=== PATIENT | male | born 1995 | race Caucasian/White ===

== ENCOUNTER 2024-04-08 14:05 | Outpatient (OUT) | payer OTHER, SELFPAY ==
--- NOTE | 2024-04-08 | XR_ITS ---
The [address] [address] Patient Name: MICHAEL BHAGAT MRN: [id number] date: 1995 Sex: M Assigned Patient Location: Current Patient Location: Accession/Order Number: [id number] Exam Date: 04/08/2024 14:15 Report Date: 04/09/2024 06:48 At the request of: TEQUILA SEARS Procedure: XR foot SONY min 3V EXAMINATION: XR foot SONY min 3V HISTORY: BILATERAL FOOT PAIN COMPARISON: No relevant comparison available. FINDINGS: RIGHT FINDINGS: BONES: No significant arthropathy or acute abnormality. SOFT TISSUES: No visible soft tissue swelling. OTHER: Negative. LEFT FINDINGS: BONES: No significant arthropathy or acute abnormality. SOFT TISSUES: No visible soft tissue swelling. OTHER: Negative. XR/XR foot SONY min 3V IMPRESSION: RIGHT CONCLUSION: No acute bone abnormality, evidence of osteomyelitis, or significant degenerative joint disease. LEFT CONCLUSION: No acute bone abnormality, evidence of ostial myelitis, or significant degenerative joint disease. Electronically authenticated by: NAINA MORILLO Date: 04/09/2024 06:48
== END 2024-04-08 14:06 | disposition home or self-care (01) ==
LOC: EC 14:05
PROVIDERS: Visit Provider Physician Assistant
DX: M79.672 Pain in left foot (principal); M79.671 Pain in right foot
CPT/HCPCS: 73630

== ENCOUNTER 2025-01-20 14:44 | Outpatient (OUT) | payer OTHER, MEDICARE, SELFPAY ==
--- OUTSIDE RECORDS SUMMARY | 2025-01-20 14:48 | XMS_ITS | Clinical Summary ---
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 Name Role Phone Jason Browning MD Primary Care Provider [phone] Allergies No known active allergies Medications MedicationSigDispense QuantityRefillsLast FilledStart DateEnd DateStatus LORazepam (Ativan) 0.5 MG tablet Indications:AnxietyTake 1 tablet (0.5 mg) by mouth 3 (three) times a day as needed for anxiety 60 tablet 4Active diphenoxylate-atropine (Lomotil) 2.5-0.025 MG tablet Indications:Diarrhea, unspecified typeTake 1 tablet by mouth 4 (four) times a day as needed for diarrhea 30 tablet 4Active omeprazole (PriLOSEC) [address] capsule Indications:Gastroesophageal reflux disease without esophagitisTake 1 capsule by mouth once daily 30 capsule 5Active ARIPiprazole (Abilify) 20 MG tablet Indications:Autistic disorder (HCC)Take 1 tablet by mouth once daily 30 tablet 5Active nystatin (Mycostatin) 780172 UNIT/GM powder Indications:Yane infection of flexural skinAPPLY POWDER TOPICALLY TO THE AFFECTED AREA TWICE DAILY 60 g 5Active divalproex (Depakote) 250 MG EC tablet Indications:Seizure disorder (HCC)Take 1 tablet by mouth twice daily 60 tablet 505Active cloNIDine (Catapres) 0.1 MG tablet Indications:Seizure disorder (HCC)TAKE 1 TABLET BY MOUTH AT BEDTIME 30 tablet 505Active FLUoxetine (PROzac) 20 MG capsule Indications:Developmental delay, severeTake 1 capsule by mouth once daily 30 capsule 5Active traZODone (Desyrel) 100 MG tablet Indications:Persistent disorder of initiating or maintaining sleepTAKE 1 TABLET BY MOUTH AT BEDTIME 30 tablet 505Active LORazepam (Ativan) 0.5 MG tablet Indications:Autistic disorder (HCC)TAKE 1/2 (ONE-HALF) TABLET BY MOUTH AT NOON BEFORE MEAL(S) 30 tablet 5Active LORazepam (Ativan) 0.5 MG tablet Indications:AnxietyTAKE 1 TABLET BY MOUTH THREE TIMES DAILY NEEDED FOR ANXIETY FOR UP TO 20 DAYS 60 tablet 5Active Active Problems ProblemNoted DateDiagnosed DateNeed for assistance with personal care07/08/2024 Encounter for long-term current use of ndlmcdomxb84/25/2024Lipid screening 07/10/2023Seizure jjqkdqre17/25/2024 Assessment & Plan (07/08/2024 9:44 AM EDT): No recent seizure activity and continue medication. Follow up with neurology as scheduled. Assessment & Plan (01/08/2024 9:38 AM EDT): No recent seizure activity and continue medication. Follow up with neurology as scheduled. Assessment & Plan (07/10/2023 11:21 AM EDT): No recent seizure activity and continue medication. Follow up with neurology as scheduled. Gait wxiuthfcexr43/29/2023astroesophageal reflux nrgurof3906/12/2022[employer] shunt 06/12/2022evelopmental delay, vljtwr1006/12/2022Hydrocephalus, congenital 02/10/2022 Assessment & Plan (07/10/2023 11:21 AM EDT): No recent seizures and monitor. Cerebral palsy04/08/2017 Assessment & Plan (07/08/2024 9:44 AM EDT): No behavior problems and continue medication. Use ativan PRN Assessment & Plan (01/08/2024 9:38 AM EDT): No behavior problems and continue medication. Use ativan PRN Assessment & Plan (07/10/2023 11:20 AM EDT): No behavior problems and continue medication. Use ativan PRN Autistic /23/2018 Assessment & Plan (07/08/2024 9:44 AM EDT): No behavior problems and continue medication. Use ativan PRN. Assessment & Plan (01/08/2024 9:38 AM EDT): No behavior problems and continue medication. Use ativan PRN. Assessment & Plan (07/10/2023 11:20 AM EDT): No behavior problems and continue medication. Use ativan PRN. Resolved Problems ProblemNoted DateDiagnosed DateResolved DateAcute allergic conjunctivitis of right eye Assessment & Plan (07/10/2023 11:20 AM EDT): Recent allergies and start OTC drops. Yane infection of flexural skin Assessment & Plan (04/14/2023 10:16 AM EST): Yane infection flexural skin mainly in inguinoscrotal region likely because of wearing diapers. Discussed different ways to limit skin moisture and keeping the skin dry. Will call in nystatin powder to help with skin moisture and skin rash. Encounters DateTypeDepartmentCare JyloGzggqarbgft98/25/2025Refill [facility] [address] [place] [id number] Jason Browning MD Vxflmla5011/02/2024Refill [facility] [address] [place] [address] Jason Browning MD 10/28/2024Refill [facility] [address] [place] [address] Jason Browning MD Seizure disorder (HCC); Developmental delay, severe; Persistent disorder of initiating or maintaining sleep; Autistic disorder (HCC)10/23/2024[facility] [address] [place] [address] Jason Browning MD Yane infection of flexural skin10/22/2024[facility] [address] [facility] [place] [phone] Jason Browning MD Gastroesophageal reflux disease without esophagitis; Autistic disorder (HCC)from Last 3 Months Immunizations ImmunizationAdministration DatesNext DueDTaP, Gvtzogkiaao27/26/2000,09/05/1995, 1994,1994,1994Hep A, Adult05/02/2015Hep A, ped/adol, 2 dose 06/26/2011Hep B, Adolescent or Meiusdjcb88/11/1995,1994,1994HiB, /21/1996,1994,1994,1994Influenza, injectable, quadrivalent, preservative free03/23/2022Influenza, recombinant, quadrivalent, injectable, preservative free01/22/2020MMR08/10/1999,05/27/1995Meningococcal ACWY, zppydayhhui68/25/2008Meningococcal IIQ6D4606/26/2011,06/09/2007Moderna SARS-CoV-2 Lbibawhflvh00/26/2021,05/11/2020,1Polio, Unspecified 09/05/1995,1994,1994,04/22/19941435QTCG-USH-0 (COVID-19) vaccine, mRNA, spike protein, LNP, bivalent, PF03/23/2022Td (adult), mohandrhmra25/25/2008Tdap 06/09/20073563Owjruoroe62/11/2012,03/31/1995 Family History Medical HistoryRelationNameCommentsNo Known ProblemsFatherHypertensionMother RelationNameStatusCommentsFatherMother Social History Tobacco UseTypesPacks/DayYears UsedDateSmoking Tobacco: NeverSmokeless Tobacco: Never Tobacco Cessation:Counseling Given: No Alcohol UseStandard Drinks/WeekCommentsNever0 (1 standard drink = 0.6 oz pure alcohol)B1300 Health LiteracyAnswerDate RecordedHow often do you need to have someone help you when you read instructions, pamphlets, or other written material from your doctor or pharmacy?Vhegtz0007/06/2024Humiliation, Afraid, Rape, and Kick questionnaireAnswerDate RecordedWithin the last year, have you been afraid of your partner or ex-partner?No07/06/2024Within the last year, have you been humiliated or emotionally abused in other ways by your partner or ex-partner?No07/06/2024Within the last year, have you been kicked, hit, slapped, or otherwise physically hurt by your partner or ex-partner?No07/06/2024Within the last year, have you been raped or forced to have any kind of sexual activity by your partner or ex-partner?No07/06/2024Social Connection and Isolation Panel AnswerDate RecordedIn a typical week, how many times do you talk on the phone with family, friends, or neighbors?Once a week07/06/2024How often do you get together with friends or relatives?More than three times a week07/06/2024How often do you attend holiness or judaism services?More than 4 times per year 07/06/2024Do you belong to any clubs or organizations such as holiness groups, unions, fraternal or athletic groups, or school groups?Yes07/06/2024How often do you attend meetings of the clubs or organizations you belong to?More than 4 times per year07/06/2024re you , , , , never , or living with a partner?Never waxbcyf5107/06/2024UDIT-CAnswerDate RecordedQ1: How often do you have a drink containing alcohol?Never07/06/2024Q2: How many drinks containing alcohol do you have on a typical day when you are drinking?Patient does not drink07/06/2024Q3: How often do you have six or more drinks on one occasion?Never07/06/2024Overall Financial Resource Strain (CARDIA) AnswerDate RecordedHow hard is it for you to pay for the very basics like food, housing, medical care, and heating?Not hard at all07/06/2024PHQ-2AnswerDate RecordedPatient Health Questionnaire-2 Rnkkt904FinSt. [facility] - Occupational Stress QuestionnaireAnswerDate RecordedDo you feel stress - tense, restless, nervous, or anxious, or unable to sleep at night because yourmind is troubled all the time - these days?Not at all07/06/2024 Exercise Vital SignAnswerDate RecordedOn average, how many days per week do you engage in moderate to strenuous exercise (like a brisk walk)?0 days07/06/2024On average, how many minutes do you engage in exercise at this level?0 min 07/06/2024Hunger Vital SignAnswerDate RecordedWithin the past 12 months, you worried that your food would run out before you got the money to buymore.Never true07/06/2024Within the past 12 months, the food you bought just didn't last and you didn't have money to get more.Never true07/06/2024PRAPARE - TransportationAnswerDate RecordedIn the past 12 months, has lack of transportation kept you from medical appointments or from getting medications?No 07/06/2024In the past 12 months, has lack of transportation kept you from meetings, work, or from getting things needed for daily living?No07/06/2024 Housing Stability Vital SignAnswerDate RecordedIn the last 12 months, was there a time when you were not able to pay the mortgage or rent on time?No07/06/2024In the past 12 months, how many times have you moved where you were living?0 07/06/2024t any time in the past 12 months, were you homeless or living in a [facility] (including now)?No07/06/2024Sex and Gender InformationValueDate Recorded Sex Assigned at BirthNot on fileLegal OiqDnor7805/29/2022 7:26 PM EDTGender IdentityNot on fileSexual OrientationNot on file Last Filed Vital Signs Vital SignReadingTime TakenCommentsBlood Ffzwljbs314/62007/08/2024 9:25 AM EDT Sunmj094007/08/2024 9:25 AM BFDUqyctpylyzf61.6 ??C (97.8 ??F)07/08/2024 9:25 AM EDTRespiratory Rlza073007/08/2024 9:25 AM EDTOxygen Rnsfmjqpfu83%07/08/2024 9:25 AM EDTInhaled Oxygen Concentration--Irgvvi96.8 kg (145 lb)07/08/2024 9:25 AM EDT Jliamv658.6 cm (5' 4 )07/08/2024 9:25 AM EDTBody Mass Index24.8907/08/2024 9:25 AM EDT Plan of Treatment Health MaintenanceDue DateLast DoneCommentsCOVID-19 Vaccine ( season) 501/09/2022, 02/09/2021, 05/11/2020, Additional history existsInfluenza Vaccine (#1)/, 03/23/2022, 01/22/2020Pneumococcal Vaccine: Pediatrics (0 to 5 Years) and At-Risk Patients (6 to 64 Years)Aged OutNo longer eligible based on patient's age to complete this topic Insurance Care Teams Team MemberRelationshipSpecialtyStart DateEnd Date Jason Browning MD PCP - GeneralFamily Elilypzq31/23/24
--- OUTSIDE RECORDS SUMMARY | 2025-01-20 14:48 | XMS_ITS | Data Portability ---
Author Organization [place] - [facility], [facility] - Inpt. Address [address] [place] [address] Care Team Providers Care Ssn/Ssbn Assistant Navigator Name Role Phone PRADEEP TINAJERO Primary Care Provider Assessment No assessment recorded. Plan of Treatment Reminders Order DateSubmit DateProviderLast Modified ByOrganization DetailsLast Modified TimeDetailsAppointmentsNone recorded.Labhemoglobin (Hb), fingerstick, blood frogalskiIn-Office Order, Internal Use Only DO Not Attach Compendium DO Not Attach Compendium, Do Not Delete/merge, 11:08:34PPD (purified protein derivative), skin testTHENA In-Office Order, Internal Use Only DO Not Attach Compendium DO Not Attach Compendium, Do Not Delete/merge, 11:12:04ReferralNone recorded. ProceduresNone recorded.SurgeriesNone recorded.ImagingNone recorded.Medication OrdersAbilify 10 mg okumss73[facility], [address] [place] [address] (), [place], [address], 05/02/2015 11:19:32fluoxetine 20 mg yamtabw25INTERSt. [facility], [facility] (), [place], [address], 05/02/2015 11:19:32Prozac 20 mg negwkur77[facility], [address] [facility] (), [place], [address], 05/02/2015 10:59:10 Abilify 10 mg ibsopg35[facility], [address] [facility] [place], [address], 06/30/2013 14:37:23 fluoxetine 10 mg oiclhio77/16/[facility], [address] [facility] (), [place], [address], 05/02/2015 10:59:10 Patient TargetsNo targets recorded. Patient Instructions Encounter Date Encounter Id Patient Instructions Last Modified By Organization Details Last Modified Time 11/04/2014 [id number] Ad[facility] nina Not available 0 11/04/2014 14:08:34 05/02/2015 [id number] Discussed BMI percentile and height and weight as documented in EMR. Reviewed growth charts. Counseled patient and/or parent regarding nutrition and physical activity, including healthy weight, an appropriate well-balanced diet; increased fruit, vegetable and whole-grain consumption, adequate calcium intake, and the importance of physical activity and daily exercise. amohr Not available 05/02/2015 10:51:46 Reason for Referral None Reported. Results Created Date Observation Date Name Description Value Unit Range Abnormal Flag Note LastModifiedBy Organization Detail LastModifiedTime 07/04/2014 07/04/2014 PPD (purified protein derivative), ski n test TB negative Not AvailableIn-Office Order Internal Use Only DO Not Attach Compendium DO Not Attach Compendium, Do Not Delete/merge, 11:07:hemoglobin (Hb), fingerstick, mgtgiNRK13.9Not AvailableIn-Office Order Internal Use Only DO Not Attach Compendium DO Not Attach Compendium, Do Not Delete/merge, 10:46:tuberculin skin testTB negativeNot AvailableIn-Office Order Internal Use Only DO Not Attach Compendium DO Not Attach Compendium, Do Not Delete/merge, [id number] 15:39:3210tuberculin skin testTB negativeNot AvailableIn-Office Order Internal Use Only DO Not Attach Compendium DO Not Attach Compendium, Do Not Delete/merge, 15:13:36 Result Notes None recorded. Problems Name Problem SNOMED Code Status Onset Date Resolution Date Notes Provider Name and Address Organization Details Recorded Time Contusion of upper limb 47480483 Active Not QfcwpypovDqdgmtWuhmno32/27/2013 03:02:40Autism spectrum spbfiukv94111271 ActivePradeep Tinajero MD [address], [place], [address], [facility], [facility]05/02/2015 11:19:[id number] Pradeep Tinajero MD [address], [place], [address], [facility], [facility]11/04/2014 14:08:34 Problem Notes None recorded. Procedures Surgical History Date Name Laterality Status Provider Name and Address Organization Details Recorded Time [facility] 06/12/2012 09:56:52Neurosurgerycomplete[facility]06/12/2012 09:56:52 Imaging Results None recorded. Procedure Notes None recorded. Medical Equipment None Reported. Allergies No known drug allergies Medications Name Sig Start Date Stop Date Status Note LastModified by Organization Details LastModified Time Ativan 1 mg tablet Take 1 tablet as needed by oral rou te. 10/14/2011 activeNot AvailableNot AvailableNot Availablefluoxetine 10 mg tabletTAKE ONE TABLET BY MOUTH EVERY DAY08/21/2011ctiveNot AvailableNot AvailableNot Available fluoxetine 10 mg capsuleTAKE ONE CAPSULE BY MOUTH EVERY DAY02/15/2014ctivehad pe 06/30/13,last prescribed 06/30/13 with 6 rf'sNot AvailableNot AvailableNot Availablefluoxetine 20 mg capsuleTAKE ONE CAPSULE BY MOUTH ONCE DAILY FOR 30 DAYS01/22/2016activelast PE was 05/02/15Not AvailableNot AvailableNot Available Abilify 10 mg tabletTAKE ONE TABLET BY MOUTH ONCE DAILY11/28/2015activelast filled 09/13/14 with 6 additional refills, last PE 07/04/15Not AvailableNot AvailableNot Available Vitals Date Recorded Body weight Body mass index (BMI) Body height Systolic And Diastolic Provider Name and Address Organization Details Last Updated DateTime 05/02/2015 65571.154 69 g 24.3 kg/m2 160.02 cm 100/52 mm[Hg] Lynne Negrete [facility] [employer], [facility] 05/02/2015 10:59:09 Date Recorded Body height Body weight Body mass index (BMI) Systolic And Diastolic Provider Name and Address Organization Details Last Updated DateTime 06/30/2013 160.02 cm 30105.931 8 g 24.8 kg/m2 110/66 mm[Hg] [facility], [facility] 06/30/2013 14:22:22 Date Recorded Body weight Body height Body mass index (BMI) Systolic And Diastolic Provider Name and Address Organization Details Last Updated DateTime 07/04/2014 74561.154 69 g 160.02 cm 24.3 kg/m2 98/52 mm[Hg] Lynne [facility]te [facility] 07/04/2014 10:50:02 Social History Question Answer Notes LastModified by Organization D etails LastModified Time Tobacco Smoking Status Never Smoker Rosette Hernandez [facility] [employer], [facility]06/30/2013 14:20:12Animal Exposure?Nomdoucette Information not gqcsaonhe79/29/2013What Type Of Diet Are You Following?REGULAR mdoucetteInformation not pxqophttw00/29/2013What Is Your Home Situation?Both ParentsmdoucetteInformation not unlztamqe94/29/2013What Is Your Parents' Marital Status?MarriedmdoucetteInformation not /29/2013What Is The Name Of Your School?[employer]ymdou[employer]etteInformation not xczwobjtt04/29/2013Do You Use Your Seat Belt Or Car Seat Routinely?YesmdoucetteInformation not ksmavbvyd70/29/2013Do You Have Smoke And Carbon Monoxide Detectors In Your Home? YesmdoucetteInformation not spfnisicf68/29/2013re You Passively Exposed To Smoke?NomdoucetteInformation not xweqttkuu91/29/2013Do You Use Sunscreen Routinely?YesmdoucetteInformation not fcskhhonn08/29/2013 Sex: Unknown Functional Status None recorded. Mental Status None recorded. Family History Relationship Description Onset Age of this Age Resolved Age Notes LastModified by Organization Details LastModified Time Mother Well adult jdibbleNot fyxrctxix35/16/2014 14:19:53FatherWell adultjdibbleNot available 06/30/2013 14:19:53 Medical History Condition Response Heart Problems N Other N Blood Diseases N Ear or Hearing Problems N ADD or ADHD N Thyroid Problems N Depression N Developmental or Behavioral Disorders Y Anemia N Constipation N Blood Pressure Problem N Eczema, Hives or other skin conditions N Diabetes N Muscle, Joint, or Bone Problems N Bedwetting N Vision or Eye Problems N Seizures/Epilepsy N Serious Illness or Injuries N Congenital Anomalies N Cancer N Asthma N Allergies N Bladder or Kidney Problems N Hospital Admission other than N GERD/Reflux N Chicken Pox N Immunizations Vaccine Type Date Status Note Provider Nam e and Address Organization Details Recorded Time meningococcal MCV4P 06/26/2011 completed Not FmabgwcqwKziyvjMzzdxu00/09/2012 03:30:20rwdesfeil63/11/2012completedNot LxhqidqthZvaiyqXxpglr08/09/2012 03:30:13Hep Teresa, ped/adol, 2 dose06/26/2011 completedNot TzzsdxqxhGvjwcoKexpep04/09/2012 03:30:13Hep Teresa, adult05/02/2015 completedNot UovbzdsadDazycrBstkcy95/18/2020 02:12:39Hib, unspecified sdnlnzspiqt37/07/1995completNisha Bauer null, [facility], [facility]06/09/2012 12:02:23Hep B, unspecified gyyxnvcgvth27/06/1995completNisha Bauer null, [facility], [facility]06/09/2012 12:02:23DTaP, unspecified ujlqmbbjpfo90/05/1995completNisha Bauer null, [facility], [facility]06/09/2012 12:02:85WUO0705/27/1995completed Rosette Bauer null, [facility], [facility]06/09/2012 12:02:23DTaP, unspecified stcsxfsbueh58/06/1995completNisha Bauer null, [facility]06/09/2012 12:02:60RAP1308/10/1999completed Rosette Bauer null, [facility], [facility]06/09/2012 12:02:09dubdwthdk63/15/1996completed Rosette Bauer null, [facility], [facility]06/09/2012 12:02:23polio, unspecified omxsexidtad77/21/1996completedArthurnnifer Juancarlos null, [facility], [facility]06/09/2012 12:02:23polio, unspecified oolsdidrbzx35/06/1995completedArthurnnifer Juancarlos null, [facility], [facility]06/09/2012 12:02:23Hep B, unspecified /06/1995completedFlorindaifer Juancarlos null, [facility], [facility]06/09/2012 12:02:23DTaP, unspecified hfkgfblcywl99/07/1995completedRosette Bauer null, [facility], [facility]06/09/2012 12:02:23Hib, unspecified formulation 1994completedArthurnnifer Juancarlos null, [facility], [facility]06/09/2012 12:02:23Hib, unspecified formulation 09/05/1995completedFlorindaifer Juancarlos null, [facility], [facility]06/09/2012 12:02:23polio, unspecified cnnjzcnxhpa55/07/1995completedFlorindaifer Juancarlos null, [facility], [facility]06/09/2012 12:02:23polio, unspecified hlmdawqumtu10/13/1995completedArthurnnifer Juancarlos null, [facility], [facility]06/09/2012 12:02:23Td(adult) unspecified amqhqgiucrg35/25/2008completedJennifer Juancarlos null, [facility], [facility]06/09/2012 12:02:23Hep B, unspecified qlzvmublpet07/11/1995completedArthurnnifer Juancarlos null, [facility], [facility]06/09/2012 12:02:23DTaP, unspecified kpylsvcfjpv80/21/1996completedArthurnnifer Juancarlos null, [facility], [facility]06/09/2012 12:02:23meningococcal ACWY, unspecified ljhprfdlpub55/25/2008completNisha Bauer null, [facility], [facility]06/09/2012 12:02:23Hib, unspecified formulation 1994completNisha Bauer null, [facility], [facility]06/09/2012 12:02:23DTaP, unspecified zscqrdayixp46/26/2000completNisha means, [facility], [facility]06/09/2012 12:02:23 Past Encounters Encounter ID Performer Location Encounter Start Date Encounter Closed Date Diagnosis/Indication Diagnosis SNOMED-CT Code Diagnosis ICD10 Code Diagnosis IMO Codes Diagnosis Note [id number] Pradeep Tinajero MD Main Office [address] [place] [address] 06/26/2011 11:26:23 06/26/2011 12:26:17 [id number] Office [address] [place] [address] 06/28/2011 11:56:30006/28/2011 15:38:[id number] Baldwinin Office [address] [place] [address] 08/07/2011 16:15:31008/07/2011 16:57:[id number] Baldwinin Office [address] [place] [address] 10/14/2011 14:04:14010/14/2011 14:39:[id number] Baldwinin Office [address] [place] [address] 01/22/2012 07:48:5801/22/2012 08:26:[id number] Baldwinin Office [address] [place] [address] 06/12/2012 09:41:26006/12/2012 10:27:[id number] Baldwin Office [address] [place] [address] 06/15/2012 13:43:03006/15/2012 15:10:[id number] Wellingtonin Office [address] [place] [address] 01/12/2013 15:02:1210 15:22:23Tuberculosis [id number] [facility] [address] [place] [address] 01/14/2013 15:07: 15:38:[id number] Tinajero [facility] [address] [facility] [place] [address] 01/19/2013 15:09:4701/19/2013 16:27:31Well [id number] A. Below, [facility] [address] [facility] [place] [address] 01/21/2013 15:13: 15:47:50Tuberculosis [id number] Pradeep Tinajero [facility] Office [address] [facility] [place] [address] 06/30/2013 14:05:0304 14:42:00Adult health yqbliolhxft522005726Jogrpd spectrum [id number] Rogalski, [facility] Office [address] [facility] [place] [address] 07/04/2014 10:39:0004 11:45:46Adult health jajojuzrtpx412726841Uqxcjw spectrum [id number] Rogalski, [facility] Office [address] [facility] [place] [address] 11/04/2014 13:40:1908 14:07:[id number] Rogalski, MD Main Office [address] [facility] [place] [address] 05/02/2015 10:42:4902 11:31:12Adult health qwjwzvxfufo752624908K27.01 Dietary management ezhhbqoifmtp474320802K25.3 Exercises education, guidance, and enewgfmhrk194744899B30.89 Active or passive xqzkebzdwwms991983137E13 Autism spectrum larmwepk65529971K69.9 Health Concerns Section Related Observation LastModified by Organization Detai ls LastModified Time None Recorded Concern Status LastModified by Organization Details LastModified Time None Recorded Advance Directives Directive None Recorded Payers Insurance Date Sequence Insurance Name Policy Number Policy Joseph Covered Member ID Joseph Member ID Guarantor Name 10/30/2013 1 [place] [id number] Sebastián Browning [id number] Sebastián Browning04/28/[id number] - DOS PRIOR TO 2022 - ADVANTAGE (MEDICAID REPLACEMENT - HMO)[id number] B [id number] Zachel Notes Date Note Type Note Provider Name and Address Orga nization Details Recorded Time 11/04/2014 text/html pt here today for follow up ER @ [facility] for abscess under R thigh/knee- ER told them it wasn't ready to do anything to because it was too hard and just gave Bactrim per dad it is starting to look better and has been drainingFrancjoanna Tinajero MD [address], [place], [address], [facility], [facility]11/04/2014 14:08:44
--- OUTSIDE RECORDS SUMMARY | 2025-01-20 14:48 | XMS_ITS | Clinical Summary ---
Author Organization [employer] Address [id number] [address] [place] [address] Care Team Providers Care Broodmare Barn Groom Name Role Phone Tosha Tc Grier DO Primary Care Provider [phone] Allergies No known active allergies Medications MedicationSigDispense QuantityRefillsLast FilledStart DateEnd DateStatus cloNIDine (CATAPRES) 0.1 mg tablet Take 1 tablet (0.1 mg total) by mouth nightly.Active FLUoxetine (PROzac) 20 mg capsule Take 1 capsule (20 mg total) by mouth in the morning.Active LORazepam (ATIVAN) 1 mg tablet Active divalproex (DEPAKOTE) 250 mg EC tablet Take 2 tablets (500 mg total) by mouth once daily at bedtime.08/23/2019Active ARIPiprazole (ABILIFY) 20 mg tablet Active omeprazole (PriLOSEC) 40 mg capsule Active traZODone (DESYREL) 100 mg tablet Take by mouth.4Active mv-min/folic/vit K/lycop/coQ10 (DAILY MULTIVITAMIN ORAL) Take by mouth 3 (three) times a week.Active melatonin 10 mg tablet Take 2 tablets by mouth nightly.Active Active Problems ProblemNoted DateDiagnosed DateNeed for assistance with personal care07/08/2024 Dental ojdfja3906/18/2023evelopmental delay, bdhnbv2506/12/2022S/P BILLING TYPIST shunt 06/12/2022Seizure-like bebguucb18/29/2023ysgenesis of corpus /29/2023 Disruptive behavior wkfypprz54/29/2023ait uyjyvhnuzma72/29/2023Frequent falls 06/12/2022astroesophageal reflux nsoiiqg8506/12/2022Hydrocephalus, congenital 02/10/2022utistic vfhryvpm57/23/2018Spastic cerebral palsy04/08/2017 Encounters DateTypeDepartmentCare AckzMdjaxshejtq52/02/2025 2:00 PM EDTOffice Visit [facility] [address] [place] [address] [place] [address] Tc Givens, DO Other cerebral palsy ([facility]) (Primary Dx); Developmental delay, severe; Autistic spectrum disorder; Seizure-like activity ([facility])12/14/2024Travelfrom Last 3 Months Family History Medical HistoryRelationNameCommentsNeuropathyFatherBreast cancerMaternal Aunt DiabetesMaternal AuntDiabetesMaternal GrandfatherHypertensionMotherBreast cancer Paternal AuntDiabetesPaternal GrandfatherStrokePaternal GrandfatherAnesthesia problemsNeg HxRelationNameStatusCommentsFatherAliveMaternal AuntAliveMaternal GrandfatherDeceasedMotherAlivePaternal AuntAlivePaternal GrandfatherDeceased Social History Tobacco UseTypesPacks/DayYears UsedDateSmoking Tobacco: NeverSmokeless Tobacco: Never Tobacco Cessation:Counseling Given: Not Answered Alcohol UseStandard Drinks/WeekCommentsNever0 (1 standard drink = 0.6 oz pure alcohol)AUDIT-CAnswerDate RecordedQ1: How often do you have a drink containing alcohol?Never09/24/2019Average Number of DrinksNot on file09/24/2019Frequency of Binge DrinkingNot on file09/24/2019Overall Financial Resource Strain (CARDIA) AnswerDate RecordedHow hard is it for you to pay for the very basics like food, housing, medical care, and heating?Not hard at all12/14/2024PRAPARE - TransportationAnswerDate RecordedIn the past 12 months, has lack of transportation kept you from medical appointments or from getting medications?No 12/14/2024In the past 12 months, has lack of transportation kept you from meetings, work, or from getting things needed for daily living?No12/14/2024 Housing InstabilityAnswerDate RecordedAre you worried or concerned that in the next two months you may not have stable housing that you own, rent or stay in as a part of a household?No5ChildcareAnswerDate RecordedChildcareUnknown 08/26/2018EmploymentAnswerDate UxmhxpdcYcrdziehrcRnmcuqg91/12/2019Hunger ScreeningAnswerDate RecordedWithin the past 12 months we worried whether our food would run out before we got money to buy more.Never True12/16/2024Within the past 12 months the food we bought just didn't last and we didn't have money to get more.Never True12/16/2024Purpose - LifeAnswerDate RecordedPurpose and direction in gysaSekddui58/11/2021ex and Gender InformationValueDate Recorded Sex Assigned at BirthNot on fileLegal XkyOzwi2611/15/2014 11:23 PM EDTGender IdentityNot on fileSexual OrientationNot on file Last Filed Vital Signs Vital SignReadingTime TakenCommentsBlood Gxjsetrv842/7104 11:40 AM EDT Ocumq537212/16/2024 2:11 PM VIFZgkhtspzndc82.9 ??C (96.6 ??F)12/16/2024 2:11 PM EDTRespiratory Pkgt6605 12:20 PM EDTOxygen Xjxkwciuli75%12/16/2024 2:11 PM EDTInhaled Oxygen Concentration--Mshejh24 kg (150 lb)12/16/2024 2:11 PM EDT Rgjamn474.6 cm (5' 4 )12/16/2024 2:11 PM EDTBody Mass Index25.7512/16/2024 2:11 PM EDT Plan of Treatment DateTypeDepartmentCare Team (Latest Contact Info)Lzpkkwtktfk19/02/2026 11:00 AM EDTOffice Visit [facility] [address] [place] [address] [place] [address] Tc Givens, [address] [place] [address], [address], [place] [address] Health MaintenanceDue DateLast DoneCommentsDepression Xocodmezp95/12/2006dult BMI Follow Up Plan02/26/2012DTaP,Tdap and Td Vaccines (7 - Td or Tdap)06/08/2017 06/09/2007, 06/09/2007, 08/10/1999, Additional history existsCOVID-19 Vaccine ( season), 03/23/2022, 02/09/2021, Additional history existsInfluenza Bgztwny39/, 03/23/2022, 01/22/2020Adult BMI Iyfabeara07Tobacco Oigqllumg40 Medical Devices Not on file Insurance Care Teams Team MemberRelationshipSpecialtyStart DateEnd Date Tc Givens DO [address] [facility] [address] [place] [address] [facility]12/16/24
--- OUTSIDE RECORDS SUMMARY | 2025-01-20 14:49 | XMS_ITS | Patient Health Record ---
Author Organization [facility] [place] Address [address] [place] [address] Care Team Providers Care Hauling Contractor Name Role Phone Mg MAK, [place] Primary Care Provider Tequila Reilly Unavailable [phone] Allergies No Known Allergies Results Component Value Reference Range Notes XR foot SONY min 3V (Not yet reviewed by provider) Interpretation: Performing Lab: Notes/Report: Source Facility: [place] [address] XRay Report Signed Patient: Michael Bhagat MR#: [id number] : 1995 Acct:[id number] Age/Sex: 29 / M ADM Date: 04/08/24 Loc: [facility] Attending Dr: Tequila Sears Ordering Physician: Tequila Sears Date of Service: 04/08/24 Procedure(s): XR foot SONY min 3V Accession Number(s): [id number] cc: Tequila Sears; Physician,Non-Staff M.DConrad [facility] [place] [address] Patient Name: MICHAEL BHAGAT MRN: [id number] date: 1995 Sex: M Assigned Patient Location: [facility] Current Patient Location: Accession/Order Number: [id number] Exam Date: 04/08/2024 14:15 Report Date: 04/09/2024 06:48 At the request of: TEQUILA SEARS Procedure: XR foot SONY min 3V EXAMINATION: XR foot SONY min 3V HISTORY: BILATERAL FOOT PAIN COMPARISON: No relevant comparison available. FINDINGS: RIGHT FINDINGS: BONES: No significant arthropathy or acute abnormality. SOFT TISSUES: No visible soft tissue swelling. OTHER: Negative. LEFT FINDINGS: BONES: No significant arthropathy or acute abnormality. SOFT TISSUES: No visible soft tissue swelling. OTHER: Negative. XR/XR foot SONY min 3V IMPRESSION: RIGHT CONCLUSION: No acute bone abnormality, evidence of osteomyelitis, or significant degenerative joint disease. LEFT CONCLUSION: No acute bone abnormality, evidence of ostial myelitis, or significant degenerative joint disease. Electronically authenticated by: TAL NEGRON Date: 04/09/2024 06:48 Dictated By: Tal Negron M.D. Signed By: 04/09/24650 DD/ 7 TD/TT: [employer] Repairer: Reason For Referral No Information Medications Medication SIG (Take, Route, Frequency, Duration) Notes Start Date End Date Status Depakote 250 MG 1 tablet Orally Twice a day 5ActiveARIPiprazole 20 MG1 tablet Orally Once a day5Active Ativan 0.5 MG1 tablet at bedtime as needed Orally Once a day04/08/2024tive FLUoxetine HCl 20 MG1 capsule Orally Once a day5ActivecloNIDine 0.1 MG/24HR1 patch to skin Emydqdbkyle57/23/2025Active Social History Tobacco Use: Social History Observation Description Date Details (start date - stop date) Never Smoker NA - NA Tobacco Control (Standard) Question Answer Notes Tobacco use: Nonsmoker Problems Problem Type SNOMED Code ICD Code Onset Dates Problem Status W/U Status Risk Notes Problem Pain in right foot (009321295260347) Righ t foot pain (M79.671) ActiveconfirmedProblemPain in left foot (437993881814783)Left foot pain (M79.672)Activeconfirmed Vital Signs Heart Rate 77 /min 04/08/2024 Advckemtvad91.5 degrees Ivddtpbmso52/23/2025Respiratory Rate16 /min04/08/2024 Sahjklfv28 %04/08/2024 Encounters Encounter Location Date Provider Diagnosis [facility] (PODIAT[facility]) [address] [place] [address] [place] [address] 04/08/2024 Tequila Sears Left foot pain M79.672 ; Stress fracture, right foot, sequela M84.374S and Right foot pain M79.671 Assessments Encounter Date Diagnosis (ICD Code) Assessment Notes Treatment Notes Treatment Clinical Notes Section Notes 04/08/2024 Left foot pain (ICD-10 - M79.672 ) 04/08/2024Stress fracture, right foot, sequela (ICD-10 - M84.374S) The patient is a pleasant nonverbal 29-year-old gentleman with history of cerebral palsy who was brought in by his father for evaluation of suspected foot pain. The patient's father reports that Michael has seemed hesitant to walk at times over the past couple of weeks. He has not complained of pain, but his dad wanted his feet checked out given his historyof right fifth metatarsal stress fracture in the past. No bruising or tenderness noted on examination. I see no evidence of acute trauma or acute stress fracture on his x-rays. There is evidence of the old stress fracture on the right fifth metatarsal base, however this appears healed. Dad was encouraged to keep a close eye on the patient's feet and should follow- up if there are any changes or concerns. He is agreeable with the plan. 04/08/2024Right foot pain (ICD-10 - M79.671) Plan Of Treatment Pending Test Test Name Order Date XR Foot LT (3 views) * 04/08/2024 XR Foot RT (3 views) * 04/08/2024 XR foot SONY min 3V 04/09/2024 Insurance Providers Payer Name Payer Address Payer Phone Subscriber Number Group Number Insured Name Patient Relationship to Insured Coverage Start Date Coverage End Date [facility] [address] [place] [address] [id number] Rishabh Bhagat - patient is the insuredMEDICAID [address] [place], [place] [id number], GeoffreySelf - patient is the insured Medical (General) History Medical History History ICD Code Embedded toenail L60.0 Foot pain, right M79.671 Arch pain, left M79.67
--- NOTE | 2025-01-20 15:17 | PM.WCHP ---
Wound Care H&P: HPI History of Present Illness Narrative: Sukhjinder is a 29 year old gentleman with history of nonverbal cerebral palsy who lives with his parents who are his primary caregivers. He presents today for routine nail care. His mother reports since he developed thick fungal toenails she has been unable to trim them at home. She also reports he has calluses on his feet but they are not too thick at the moment. Exam Narrative: Exam Narrative: Derm: light callus formation noted on the right lateral forefoot and left medial forefoot. Toenails 1-10 are elongated a thickened. At least 2 toenails on each foot are mycotic and discolored. Vasc: DP and PT pulses are 2/4 bilaterally. Digital hair is normal. Brisk cap refill to all toes. Neuro: achilles DTR 1+ on the right, 2+ on the left. He is not able to cooperate for full neurological assessment, but protective sensation appears grossly intact. MSK: rigid foot contracture of both feet, R>L. Strength appears symmetric to the lower extremities. Assessment and Plan Assessment and Plan (1) Tinea unguium: (2) Cerebral palsy: Qualifiers: Cerebral palsy type: unspecified type Qualified Code(s): G80.9 - Cerebral palsy, unspecified (3) Pain around toenail: Plan Routine nail care performed. I discussed callus management with the patient's mother. Follow up in 3 months, sooner as needed. Acute Procedures Podiatry Nail Debridement Class B Findings Advanced trophic changes as evidenced by any three of the following: nail changes (thickening) Class C Findings Temperature changes: No Edema: No Qualifies If: Qualifiers If:: A patient qualifies for nail debridement if they have: 1 class A finding (Q7) 2 class B findings (Q8) OR 1 class B & 2 class C findings in addition to a primary condition (Q9) Nail Procedure Nail Procedure Time out: Yes Nail procedure: other (debridement toenails 1-10) Number of affected nails: 10 Location (toes): left and right Procedure successful: Yes Patient tolerated procedure: well and no complications Additional comments: toenails 1-10 were sharply debrided with nail nippers without incident.
== END 2025-01-20 14:45 | disposition home or self-care (01) ==
PROVIDERS: Visit Provider Physician Assistant
DX: B35.1 Tinea unguium (principal); G80.9 Cerebral palsy, unspecified; L60.8 Other nail disorders; M79.674 Pain in right toe(s); M79.675 Pain in left toe(s)
CPT/HCPCS: 11721